=== PATIENT | female | born 1980 | race African-American/Black ===

== ENCOUNTER 2019-09-09 12:48 | Emergency (ER) | payer OTHER ==
[~2019-09-09] VITALS: Ht 152.4 cm; Wt 72.6 kg
[2019-09-09 12:57] VITALS: BP 124/80
[2019-09-09] MEDS ORDERED: IBUPROFEN 800 MG TAB PO ONE (13:20)
[2019-09-09] MEDS ORDERED: NEOMYCIN/POLYMYXIN/BACITRACIN 0.9 GM/1 PKT TP ONE (13:50)
[2019-09-09 13:59] VITALS: BP 124/80
== END 2019-09-09 13:58 | disposition home or self-care (01) ==
LOC: MED 12:48
DX: S50.312A Abrasion of left elbow, initial encounter (principal); V89.2XXA Person injured in unspecified motor-vehicle accident, traffic, initial encounter; Y93.89 Activity, other specified; Y92.89 Other specified places as the place of occurrence of the external cause; Y99.8 Other external cause status
CPT/HCPCS: 73080; 73090; 81025; 99284

== ENCOUNTER 2019-09-12 06:08 | Emergency (ER) | payer OTHER ==
[~2019-09-12] VITALS: Ht 157.5 cm; Wt 77.1 kg
[2019-09-12 06:19] VITALS: BP 115/78
[2019-09-12] MEDS ORDERED: MORPHINE SULFATE 4 MG/ML SYR IVP ONE (07:20)
[2019-09-12] MEDS ORDERED: ONDANSETRON 4 MG/2 ML VIAL IVP ONE (07:20)
[2019-09-12] MEDS ORDERED: MORPHINE SULFATE 2 MG/ML SYR ONE (07:42)
[2019-09-12 08:21] LABS: BASOPHILS % (AUTO) 0.8 % (0.0-2.0); EOSINOPHILS # (AUTO) 0.1 K/uL (0-0.4); EOSINOPHILS % (AUTO) 2.6 % (0.0-4.0); HEMATOCRIT 42.4 % (36-48); HEMOGLOBIN 13.8 g/dL (12.0-16.0); LYMPHOCYTES # (AUTO) 1.8 K/uL (2.5-16.5); LYMPHOCYTES % (AUTO) 33.8 % (20.5-51.1); MEAN CORPUSCULAR HEMOGLOBIN 28 pg (27-31); MEAN CORPUSCULAR HGB CONC 33 g/dL (33-37); MONOCYTES # (AUTO) 0.5 K/uL (0.8-1.0); MONOCYTES % (AUTO) 8.5 % (1.7-9.3); NEUTROPHILS # (AUTO) 2.9 K/uL (1.8-7.7); NEUTROPHILS % (AUTO) 54.3 % (42.2-75.2); PLATELET COUNT (AUTO) 259 K/uL (140-450); RED BLOOD CELL COUNT(AUTO) 4.93 MIL/uL (4.20-5.40); RED CELL DISTRIBUTION WIDTH 14.1 % (11.6-13.7); WHITE BLOOD COUNT (AUTO) 5.4 K/uL (4.8-10.8)
[2019-09-12 08:28] LABS: APPEARANCE,URINE HAZY (CLEAR); BILIRUBIN,URINE NEGATIVE (NEGATIVE); BLOOD, URINE NEGATIVE (NEGATIVE); COLOR,URINE YELLOW (YELLOW); LEUKOCYTE ESTERASE ,URINE TRACE (NEGATIVE); NITRITE, URINE NEGATIVE (NEGATIVE); PH,URINE 7.5 (5.0-9.0); UGLUCOSE NEGATIVE (NEGATIVE)
[2019-09-12 08:41] LABS: ANION GAP 12.3 (8-16); CARBON DIOXIDE 26.5 mmol/L (21-32); CREATININE 0.9 mg/dL (0.6-1.3); POTASSIUM 3.8 mmol/L (3.5-5.1); TOTAL BILIRUBIN 0.4 mg/dL (0.0-1.0)
[2019-09-12 08:48] LABS: RBC,URINE NONE SEEN /HPF (0-5); URINE AMORPHOUS URATE 1+ /HPF (None Seen); WBC,URINE 0-5 /HPF (0-5)
[2019-09-12 10:05] VITALS: BP 123/78
== END 2019-09-12 10:05 | disposition home or self-care (01) ==
LOC: MED 06:08
DX: R10.30 Lower abdominal pain, unspecified (principal); V49.49XA Driver injured in collision with other motor vehicles in traffic accident, initial encounter; Y93.89 Activity, other specified; Y92.89 Other specified places as the place of occurrence of the external cause; Y99.8 Other external cause status
CPT/HCPCS: 36415; 74177; 80053; 81001; 83690; 84703; 85025; 96374; 96375; 99285; J2270; J2405; Q9967